=== PATIENT | female | born 1985 | race Caucasian/White ===

== ENCOUNTER → 2018-04-06 | Outpatient (CLI) | payer OTHER | LOC: LAB.O 08:19 | PROVIDERS: ATTEND Surgery | DX: R10.11 Right upper quadrant pain (principal) ==

== ENCOUNTER 2018-04-07 05:58 | Day surgery (SDC) | payer SELFPAY ==
[2018-04-07] MEDS ORDERED: KETOROLAC TROMETHAMINE INJ 30 MG/ML VIAL ONE (07:00)
[2018-04-07] MEDS ORDERED: LIDOCAINE 1% 10 ML VIAL INJ ONE (07:00)
[2018-04-07] MEDS ORDERED: DEXAMETHASONE INJ 10 MG/ML VIAL ONE (07:00)
[2018-04-07] MEDS ORDERED: PROPOFOL 200 MG/20 ML VIAL IV ONE (07:00)
[2018-04-07] MEDS ORDERED: raNITIdine HCL INJ 25 MG/ML VIAL ONE (07:00)
[2018-04-07] MEDS ORDERED: METOCLOPRAMIDE HCL INJ 10 MG/2 ML VIAL ONE (07:00)
[2018-04-07] MEDS ORDERED: SODIUM CHL 0.9% 100ML MINI-BAG 100 ML IVPB ONE (09:47)
[2018-04-07] MEDS ORDERED: ceFAZolin SODIUM 1 GM VIAL ONE (09:47)
[2018-04-07] MEDS ORDERED: LACTATED RINGERS 1,000 ML ONE ×2 (09:47→12:30)
[2018-04-07] MEDS ORDERED: BUPIVACAINE 0.25% W/EPI 50 ML VIAL INJ ONE (10:01)
[2018-04-07] MEDS ORDERED: HEPARIN SODIUM (PORCINE) 10,000 UNITS/ML VIAL ONE (10:01)
[2018-04-07] MEDS ORDERED: MIDAZOLAM INJ 2 MG/2 ML VIAL ONE (10:11)
[2018-04-07] MEDS ORDERED: fentaNYL CITRATE INJ 50 MCG/ML AMP ONE (10:11)
[2018-04-07] MEDS ORDERED: ROCURONIUM BROMIDE 10 MG/ML VIAL ONE (10:11)
[2018-04-07] MEDS ORDERED: ACETAMINOPHEN IV 1000MG 100 ML ONE (11:29)
[2018-04-07] MEDS ORDERED: SUGAMMADEX SODIUM 200 MG/2 ML VIAL IV ONE (11:46)
[2018-04-07] MEDS ORDERED: ONDANSETRON INJ 4 MG/2 ML VIAL ONE (12:18)
[2018-04-07] MEDS ORDERED: PROMETHAZINE HCL INJ 25 MG/ML VIAL ONE (12:26)
[2018-04-07] MEDS ORDERED: HYDROmorphone HCL INJ 2 MG/ML VIAL ONE (12:36)
--- NOTE | 2018-04-07 13:20 | OP ---
DATE OF PROCEDURE: 04/07/18 PREOPERATIVE DIAGNOSIS: 1. Symptomatic cholelithiasis. POSTOPERATIVE DIAGNOSIS: 1. Symptomatic cholelithiasis. 2. Chronic cholecystitis. PROCEDURE: 1. Laparoscopic cholecystectomy with intraoperative cholangiography using fluoroscopy. SURGEON: Izaiah Cosme MD. STOCK PREPARER: None. ANESTHESIA: Local infiltration of 0.25% Marcaine with epinephrine and general endotracheal anesthesia. INDICATION: The patient is a 32-year-old female who has had colicky right upper quadrant pain with nausea and vomiting. She has sonographically diagnosed cholelithiasis. She has fatty food intolerance. The patient was brought to the [facility] today for cholecystectomy after the risks, benefits and alternatives to the procedure were discussed and accepted and all questions were answered. FINDINGS: The gallbladder was normal coloration without significantly thickened wall. There were small stones. Intraoperative cholangiography revealed free flow into the duodenum with no filling defects or strictures noted. No other intraabdominal pathology was identified. DESCRIPTION OF PROCEDURE: After adequate general endotracheal anesthesia was obtained, the patient was prepped and draped in the usual sterile manner. Surgical time-out was taken. At this time, the previous scar in the infraumbilical area was infiltrated with local anesthesia and re-incised. Dissection was carried down through the skin and subcutaneous tissue using blunt dissection. Traction sutures were placed on either side of the midline. A small incision was made in the midline fascia and the peritoneum was opened bluntly. Sylvia trocar was introduced under direct vision into the abdominal cavity and fixed in place with the 20 mL balloon. CO2 was then insufflated until a pressure of 12 mmHg was reached and the abdomen was tympanitic in all four quadrants. When this was done, the laparoscope was introduced. The abdomen was inspected with the previously noted findings. The patient was then placed in reverse Trendelenburg position and turned to the left side. The upper abdominal ports were placed under direct vision. The gallbladder was grasped, retracted anteriorly and laterally. The neck of the gallbladder was retracted laterally. The triangle of Calot was then explored with the cystic duct and cystic artery identified and isolated. The cystic duct was hemoclipped once proximally at the gallbladder neck. The artery was hemoclipped twice proximally and once distally. A small incision was made in the cystic duct. The cholangiogram catheter was introduced through a separate stab wound in the right upper quadrant, introduced into the cystic duct and clipped in place. Cholangiograms were then taken using fluoroscopy which revealed free flow into the duodenum with no filling defects or strictures noted. The two right and left intrahepatic ducts were identified. At this point, the cystic duct catheter was removed. The cystic duct was hemoclipped three times distally and divided between the hemoclips. The cystic artery was divided. The gallbladder was then dissected free from the gallbladder bed of the liver. A second arterial vessel was identified on the bed of the gallbladder and this was clipped and divided. The gallbladder was then dissected free from the gallbladder bed of the liver using electrocautery. A small amount of oozing was controlled easily with cautery. When good hemostasis was noted, the emelyn hepatis was inspected with no bleeding or bile leak identified. At this point, the subhepatic space and subphrenic space were both irrigated copiously with saline. Again, hemostasis was noted be adequate. At this point, the upper abdominal ports were removed under direct vision and good hemostasis was noted. At this point, the CO2, the laparoscope and the infraumbilical port were removed. The infraumbilical port site fascia was approximated with a single [id number]-bm-[id number] suture of 0 Vicryl. Subcutaneous tissue was irrigated with saline. Skin edges were approximated with 4-0 Vicryl subcuticular sutures, benzoin and Steri-Strips. Sterile dressings were applied. The patient was awakened and taken to the Recovery Room in good and stable condition. Estimated blood loss was less than 25 mL. All sponge, needle and instrument counts were correct. #[id number] [facility]
[2018-04-07] MEDS ORDERED: HYDROcodone 5MG/APAP 325MG 1 EA TAB ONE (13:22)
[2018-04-07 15:10] VITALS: BP 104/63; TEMP 98; O2SAT 97
== END 2018-04-07 14:45 | disposition home or self-care (01) ==
LOC: AMB 05:58
PROVIDERS: ATTEND Surgery
DX: K80.10 Calculus of gallbladder with chronic cholecystitis without obstruction (principal)
CPT/HCPCS: 00790; 47563; 76000; 81025; J0690; J1100; J1170; J1644; J1885; J2250; J2405; J2550; J2765; J2780; J3010; J3490; J7050; J7120